=== PATIENT | female | born 1985 | race Caucasian/White ===

== ENCOUNTER 2017-05-24 18:17 | Emergency (ER) | payer OTHER ==
--- NOTE | 2017-05-24 19:18 | ED Physician Documentation ---
General Adult - HISTORIAN Historian: patient - HPI Stated Complaint: Diarrhea/Sore throat Chief Complaint: General Adult Onset: days ago Timing: still present Severity: moderate Further Comments: yes (Pt is a 32 yo female with cough, sore throat, diarrhea, muscle ache x 3 days. No blood in bm.) - ROS CONST: other (malaise) EYES/ENT: sore throat CVS/RESP: none GI/: diarrhea (x1) MS/SKIN/LYMPH: none - PAST HX Past History: other (DM) Surgeries/Procedures: other (appendectomy, C-sec) Allergies/Adverse Reactions: Allergies Allergy/AdvReac Type Severity Reaction Status Date / Time morphine Allergy Verified 05/23/15 12:54 Home Medications: Ambulatory Orders Medication Instructions Recorded Cephalexin [Keflex] 500 mg PO QID #40 capsule 05/23/15 Sulfamethoxazole/Trimethoprim 1 each PO BID #14 tab 05/24/17 [Bactrim Ds] - SOCIAL HX Smoking History: cigarettes - FAMILY HX Family History: No - VITAL SIGNS Vital Signs: Vital Signs Temp Pulse Resp BP Pulse Ox 98.2 F 94 H 18 164/79 98 05/24/17 18:20 05/24/17 18:20 05/24/17 18:20 05/24/17 18:20 05/24/17 18:20 - REVIEWED ASSESSMENTS Nursing Assessment Reviewed: Yes Vitals Reviewed: Yes Progress - Progress Progress: Rx Bactrim DS. Take one by mouth every 12 hrs for 7 days. ED Results Lab/Radiology - Orders Orders: ED Orders Category Date Time Status Place IV Lock 1T Care 05/24/17 19:04 Active CBC/PLATELET/DIFF Stat Lab 05/24/17 19:04 Ordered CMP Stat Lab 05/24/17 19:04 Ordered Rapid Strep [GRP A STREP SCREEN] Stat Lab 05/24/17 18:27 Ordered General Adult Physical Exam - PHYSICAL EXAM GENERAL APPEARANCE: mild distress EENT: pharyngeal erythema NECK: normal inspection, supple. No: lymphadenopathy RESPIRATORY: no resp distress, chest non-tender, breath sounds normal CVS: reg rate & rhythm, heart sounds normal ABDOMEN: soft, no organomegaly, normal bowel sounds BACK: normal inspection, no CVA tenderness SKIN: warm/dry, normal color EXTREMITIES: non-tender, normal range of motion, no evidence of injury NEURO: oriented X3, motor nml, sensation nml Discharge Clincal Impression: URI (upper respiratory infection) Qualifiers: URI type: unspecified URI Qualified Code(s): J06.9 - Acute upper respiratory infection, unspecified Prescriptions: Sulfamethoxazole/Trimethoprim [Bactrim Ds] 1 each PO BID #14 tab Referrals: Primary Doctor,No [Primary Care Provider] - Condition: Good Disposition: 01 HOME, SELF-CARE Decision to Admit: NO Decision Time: 19:18
[2017-05-24 19:40] VITALS: BP 145/83
== END 2017-05-24 19:20 | disposition home or self-care (01) ==
LOC: ED 18:17
DX: J06.9 Acute upper respiratory infection, unspecified (principal)
CPT/HCPCS: 87070; 87880; 99282

== ENCOUNTER 2017-08-04 17:22 | Emergency (ER) | payer SELFPAY ==
--- NOTE | 2017-08-04 17:51 | ED Physician Documentation ---
General Adult - HISTORIAN Historian: patient - HPI Stated Complaint: wrist pain Chief Complaint: General Adult Onset: hours Timing: still present Severity: moderate Further Comments: yes (Pt is a 32 yo female who injured her L wrist. 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 push a car off a ramp.) - ROS CONST: no problems EYES/ENT: none CVS/RESP: none GI/: none MS/SKIN/LYMPH: other (L wrist pain) - PAST HX Past History: other (DM) Allergies/Adverse Reactions: Allergies Allergy/AdvReac Type Severity Reaction Status Date / Time morphine Allergy Verified 08/04/17 17:35 Home Medications: Ambulatory Orders Medication Instructions Recorded NK [NK] 08/04/17 - SOCIAL HX Smoking History: cigarettes - FAMILY HX Family History: No - VITAL SIGNS Vital Signs: Vital Signs Temp Pulse Resp BP Pulse Ox 98.4 F 79 18 146/70 97 08/04/17 17:22 08/04/17 17:22 08/04/17 17:22 08/04/17 17:22 08/04/17 17:22 - REVIEWED ASSESSMENTS Nursing Assessment Reviewed: Yes Vitals Reviewed: Yes Progress - Progress Progress: Toradol 60 mg IM Wrist splint ED Results Lab/Radiology - Orders Orders: ED Orders Category Date Time Status WRIST 3 VIEWS OR MORE [RAD] Stat Exams 08/04/17 Ordered General Adult Physical Exam - PHYSICAL EXAM GENERAL APPEARANCE: moderate distress NECK: normal inspection, supple RESPIRATORY: no resp distress, chest non-tender, breath sounds normal CVS: reg rate & rhythm, heart sounds normal BACK: normal inspection, no CVA tenderness SKIN: warm/dry, normal color EXTREMITIES: other (L wrist tenderness; FROM.) NEURO: oriented X3, motor nml, sensation nml Discharge Clincal Impression: Left wrist sprain Qualifiers: Encounter type: initial encounter Qualified Code(s): S63.502A - Unspecified sprain of left wrist, initial encounter Referrals: Primary Doctor,No [Primary Care Provider] - Condition: Good Disposition: 01 HOME, SELF-CARE Decision to Admit: NO Decision Time: 17:54
[2017-08-04] MEDS ORDERED: KETOROLAC TROMETHAMINE 60 MG/2 ML VIAL IM ONE (17:53)
[2017-08-04 18:18] VITALS: BP 136/72
--- NOTE | 2017-08-04 18:53 | Diagnostic Imaging Report ---
GAL DEJESUS [facility] [address] [facility] [address] [address] Report Submission Date: Aug 04, 2017 5:49:41 PM CDT Patient Study Name: SKY MCKNIGHT Date: Aug 04, 2017 5:33:33 PM CDT Modality Type: DX Gender: F Description: UPPER EXTREMITY : 83 Institution: [facility] Physician: GAL DEJESUS Examination: Plain film left wrist History: LEFT WRIST, PAIN IN LEFT WRIST AFTER PUSHING A CAR TODAY AND HEARING A POP. PAIN IN MID WRIST (Hx) Comparison exams: None available Findings: 3 views the left wrist demonstrate normal cortical margins. No fracture. No dislocation. No soft tissue abnormality. Impression: No acute osseous abnormality. Electronically signed on Aug 04, 2017 5:49:41 PM CDT by: Benoit WADDELL
== END 2017-08-04 18:14 | disposition home or self-care (01) ==
LOC: ED 17:22
DX: S63.502A Unspecified sprain of left wrist, initial encounter (principal); W23.1XXA Caught, crushed, jammed, or pinched between stationary objects, initial encounter; Y92.9 Unspecified place or not applicable
CPT/HCPCS: 73110; J1885; L3908; 96372; 99283

== ENCOUNTER 2018-12-27 12:25 | Outpatient (CLI) | payer MEDICAID, OTHER ==
--- NOTE | 2018-12-27 14:16 | Diagnostic Imaging Report ---
JAZ MARIA (DISASTER RECOVERY MANAGER) - OP [facility] [address] [address] Report Submission Date: Dec 27, 2018 2:02:37 PM CDT Patient Study Name: SKY MCKNIGHT Date: Dec 27, 2018 12:27:00 PM CDT Modality Type: DX Gender: F Description: ABDOMEN 1VIEW : 83 Institution: [facility] Physician: JAZ MARIA (JOHN) - OP Exam: KUB. History: Right-sided flank pain for 5 days. No previous studies are available for comparison. Scattered loops of bowel gas in both large and small intestine is noted with a moderate amount of retained fecal material seen in the colon. No organomegaly is seen. No renal or biliary calcifications are noted. Impression: Moderate amount of retained fecal material. Nonspecific bowel gas pattern. Electronically signed on Dec 27, 2018 2:02:37 PM CDT by: Aries WADDELL
== END 2018-12-27 12:27 ==
LOC: RAD 12:25
PROVIDERS: ATTEND Nurse Practitioner Family
DX: N23 Unspecified renal colic (principal)
CPT/HCPCS: 74018